=== PATIENT | female | born 1990 | race Two or more races ===

== ENCOUNTER 2020-10-23 19:21 | Emergency (ER) | payer MEDICAID ==
[~2020-10-23] VITALS: Ht 165.1 cm; Wt 109.0 kg
[2020-10-23] MEDS ORDERED: IBUP-2030 MT (20:09)
[2020-10-23] MEDS ORDERED: KETOROLAC 60MG/2ML VIAL IM ONE (20:15)
[2020-10-23] MEDS ORDERED: ACETAMINOPHEN 325MG TABLET PO ONE (20:15)
[2020-10-23 21:15] VITALS: BP 134/80
== END 2020-10-23 21:20 | disposition home or self-care (01) ==
LOC: ER 19:21
DX: M54.5 Low back pain (principal)
CPT/HCPCS: 81025; 96372; 99283; J1885